=== PATIENT | female | born 1955 | race Caucasian/White ===

== ENCOUNTER 2021-07-21 16:29 | Observation (INO) ==
--- NOTE | 2021-07-21 20:39 | Emergency Department Note ---
Impression & Plan Vision loss of right eye ED Provider Note Provider: Tommie Castillo MD DATE OF SERVICE: 07/21/2021 CHIEF COMPLAINT: Loss of vision HISTORY OF PRESENT ILLNESS: Patient is a 66-year-old female does not normally see a doctor presenting here reporting that over the past week she lost vision in her right eye. States a little bit of pressure and numbness of the right religion area. No trauma reported. No ocular eye pain acutely at this point. Denies headache or dizziness. Denies difficulty speaking or walking. Denies numbness or tingling in the other extremities. Patient states she went to the eye doctor today who did an exam and recommended she come here for further evaluation. Patient states she wears glasses and distantly were contacts but no history otherwise of ophthalmologic surgeries. REVIEW OF SYSTEMS: A total of 10 review of systems was obtained and negative except as stated above in the HPI. PAST MEDICAL HISTORY: As noted above MEDICATIONS: Denies SOCIAL HISTORY: , occasional smoker PHYSICAL EXAM: GENERAL: alert and oriented in no acute distress on stretcher Head: normocephalic and atraumatic EYES: No injection, discharge or icterus. On extraocular motions the patient has inability to significantly elevate the right eye above midline. The right eye has no visual acuity to light. The pupils do not constrict with light to the right eye, but the the left eye constrict with light in the left eye and the right eye constricts with this as well consensually NECK: Trachea midline. Supple. ENT: Mucous membranes pink and moist. LUNGS: Airway patent. No retractions. Breath sounds clear with good air entry bilaterally. HEART: Regular rate and rhythm. No chest wall tenderness ABDOMEN: Soft and non-tender, without guarding or rebound. SKIN: Acyanotic, warm, dry, without rashes EXTREMITIES: Without swelling, tenderness or deformity NEUROLOGICAL: No aphasia. No facial droop or slurred speech. Normal strength and tone in the extremities. Sensation to gross touch normal except for a little numbness over the right religion region. Ambulatory. EK bpm normal sinus rhythm. No PVC or PAC. No acute ST segment elevation or depression. QTC 420. CONTINUOUS CARDIAC MONITORING: was ordered and showed a heart rate of 60-80s bpm in normal sinus rhythm 60s Patient's laboratory studies and imaging reviewed. Differential includes Infection, dehydration, metabolic abnormality, hypo/hyperglycemia, electrolyte disturbance, anemia, hypoxia, cardiac sources, intracerebral event, toxicologic, neurologic, as well as other pathologies. IMPRESSION/MEDICAL DECISION MAKING: Patient with loss of vision in the right eye and difficulty with extraocular motions of the right eye raising above horizon. Pupil reacts on the right side. Little bit of numbness and pressure behind the eye and to the right religion. No other aphasia or numbness or weakness elsewhere. No trauma reported or significant headache or dizziness. Right eye does not see even light. CRP and ESR not elevated and seems less likely be GCA. Question possible stroke, CRAO, or possible mass given the visual findings and extraocular motion abnormalities. Basic blood work completed here without significant abnormality. Sent for CT and CTAs of the head and neck. Again seen by optometry today and symptoms seem far beyond just simple retinal pathology such as retinal detachment or PVD. Imaging per radiology reports as below without significant acute pathology. Inflammatory markers not elevated. Given some aspirin here with Pepcid. Patient needs MRI and further neurological evaluation. Will discuss with the hospitalist further care here at the hospital. DIAGNOSIS: Right visual loss, extraocular motion abnormality of the right eye DISPOSITION: Hospitalist will evaluate Patient was agreeable with this plan. Preliminary Findings Only See Final Report For Complete Findings CT HEAD: Mild brain volume loss. No mass, hemorrhage or acute infarct. Sinuses, mastoids and bones are intact. Impression: No acute findings. Radiologist: Bhaskar Silva M.D. Study ready at 22:37 and initial results transmitted at 22:41 Preliminary Findings Only See Final Report For Complete Findings CTA HEAD: The cavernous carotids are intact. MCAs and ACAs are intact. Vertebrals, basilar and the lap cutter truer operator are intact. Impression: No acute findings. Radiologist: Bhaskar Silva M.D. Study ready at 22:42 and initial results transmitted at 23:01 Preliminary Findings Only See Final Report For Complete Findings CTA NECK: Minimal atherosclerosis of the aortic arch. The right and left carotids are intact. The vertebral arteries are intact. Upper lung vazquez, soft tissues intact. No acute findings in the bones. Impression: No acute findings. Radiologist: Bhaskar Silva M.D. Study ready at 22:42 and initial results transmitted at 23:02 Past Med/Surg History Social History Smoking Status: Current some day smoker Tobacco Type: Cigarettes Feels Safe at Home: Yes Results & Data (ED) Vital Signs Vital Signs - 24 hr 07/21/21 16:39 07/21/21 20:00 07/21/21 21:20 Temperature 36.7 C Temperature Source Oral Pulse Rate 98 H 85 Pulse Rate [Right Finger] 77 Pulse Rate from SpO2 Sensor 85 Respiratory Rate 20 20 18 Respiratory Effort / Characteristics Non-Labored Spontaneous Respiratory Depth Normal Respiratory Pattern Regular Blood Pressure 183/112 H Blood Pressure [Right Arm] 148/110 H Blood Pressure Mean 135 Blood Pressure Mean [Right Arm] 122 Blood Pressure Position Sitting Blood Pressure Position [Right Arm] Sitting Pulse Oximetry 96 97 97 Oxygen Delivery Method Room Air Room Air Sepsis Recent Fever Within 48 Hours No Sepsis New/Unexplained Change in Mental Status No Sepsis Action Taken by Nursing No Action Required 07/21/21 21:30 07/21/21 22:00 07/21/21 22:35 Temperature Temperature Source Pulse Rate 70 66 79 Pulse Rate [Right Finger] Pulse Rate from SpO2 Sensor 68 65 78 Respiratory Rate 25 H 18 23 Respiratory Effort / Characteristics Respiratory Depth Respiratory Pattern Blood Pressure Blood Pressure [Right Arm] Blood Pressure Mean Blood Pressure Mean [Right Arm] Blood Pressure Position Blood Pressure Position [Right Arm] Pulse Oximetry 95 96 94 Oxygen Delivery Method Sepsis Recent Fever Within 48 Hours Sepsis New/Unexplained Change in Mental Status Sepsis Action Taken by Nursing 07/21/21 22:59 07/21/21 23:42 Temperature Temperature Source Pulse Rate Pulse Rate [Right Finger] 64 80 Pulse Rate from SpO2 Sensor Respiratory Rate 20 20 Respiratory Effort / Characteristics Non-Labored Spontaneous Respiratory Depth Normal Respiratory Pattern Regular Blood Pressure Blood Pressure [Right Arm] 125/69 129/88 Blood Pressure Mean Blood Pressure Mean [Right Arm] 87 101 Blood Pressure Position Blood Pressure Position [Right Arm] Sitting Sitting Pulse Oximetry 99 97 Oxygen Delivery Method Room Air Sepsis Recent Fever Within 48 Hours Sepsis New/Unexplained Change in Mental Status Sepsis Action Taken by Nursing Laboratory Data Result diagrams: 07/21/21 21:15 07/21/21 21:15 Lab Results 07/21/21 07/21/21 07/21/21 Range/Units 21:14 21:15 21:15 WBC 10.58 (4.8-10.8) K/uL RBC 5.07 (4.2-5.4) M/uL Hgb 15.9 (12.0-16.0) g/dL POC Hgb (12.0-16.0) g/dl Hct 46.5 (37-47) % POC Hct (37-47) % MCV 91.7 (80-100) fL MCH 31.4 (25-34) pg MCHC 34.2 (32-36) g/dL RDW Std Deviation 43.3 (36.4-46.3) fL RDW Coeff of Vania 13.1 (11.5-14.5) % Plt Count 388 (130-400) K/uL MPV 10.0 (7.4-10.4) fL Immature Gran % (Auto) 0.2 % Neut % (Auto) 57.9 % Lymph % (Auto) 30.8 % [place] % (Auto) 9.0 % Eos % (Auto) 1.7 % Baso % (Auto) 0.4 % Neut # (Auto) 6.13 (1.4-6.5) K/uL Lymph # (Auto) 3.26 (1.2-3.4) K/uL [place] # (Auto) 0.95 H (0.11-0.59) K/uL Eos # (Auto) 0.18 (0-0.5) K/uL Baso # (Auto) 0.04 (0-0.2) K/uL Immature Gran # (Auto) 0.02 (0.00-0.02) K/uL ESR (0-30) mm/hr PT 9.9 (9.0-12.0) Seconds INR 1.0 (0.9-1.1) APTT 26.0 (21.0-31.0) Seconds PTT Ratio 1.0 POC Sodium (135-144) mmol/L Sodium (136-145) mmol/L POC Potassium (3.3-5.0) mmol/L Potassium (3.5-5.1) mmol/L POC Chloride (101-112) mmol/L Chloride (98-107) mmol/L Carbon Dioxide (21-32) mmol/L POC Total CO2 (24-31) mmol/L Anion Gap (3-11) POC Anion Gap (16-25) mmol/L POC BUN (7-18) mg/dl BUN (7-18) mg/dl Creatinine (0.6-1.2) mg/dl POC Creatinine (0.6-1.3) mg/dl Est Cr Clr Drug Dosing ml/min Est GFR ( Amer) ml/min Est GFR (Non-Af Amer) ml/min BUN/Creatinine Ratio (10-20) Glucose (70-99) mg/dl POC Glucose 99 (70-99) mg/dl POC Glucose (other) (70-99) mg/dl Calcium (8.5-10.1) mg/dl POC Ioniz Calcium Rai (1.12-1.32) mmol/l Magnesium (1.8-2.4) mg/dl Total Bilirubin (0.2-1) mg/dl AST (15-37) U/L ALT (12-78) U/L Alkaline Phosphatase (45-117) U/L Troponin I (0-0.045) ng/ml C-Reactive Protein (0-0.29) mg/dl Total Protein (6.4-8.2) gm/dl Albumin (3.4-5.0) gm/dl Globulin (2.5-4.0) gm/dl Albumin/Globulin Ratio (0.9-2) COVID-19 Eval Order SARS-CoV-2 (PCR) (Negative) 07/21/21 07/21/21 07/21/21 Range/Units 21:15 21:15 21:18 WBC (4.8-10.8) K/uL RBC (4.2-5.4) M/uL Hgb (12.0-16.0) g/dL POC Hgb (12.0-16.0) g/dl Hct (37-47) % POC Hct (37-47) % MCV (80-100) fL MCH (25-34) pg MCHC (32-36) g/dL RDW Std Deviation (36.4-46.3) fL RDW Coeff of Vania (11.5-14.5) % Plt Count (130-400) K/uL MPV (7.4-10.4) fL Immature Gran % (Auto) % Neut % (Auto) % Lymph % (Auto) % [place] % (Auto) % Eos % (Auto) % Baso % (Auto) % Neut # (Auto) (1.4-6.5) K/uL Lymph # (Auto) (1.2-3.4) K/uL [place] # (Auto) (0.11-0.59) K/uL Eos # (Auto) (0-0.5) K/uL Baso # (Auto) (0-0.2) K/uL Immature Gran # (Auto) (0.00-0.02) K/uL ESR 26 (0-30) mm/hr PT (9.0-12.0) Seconds INR (0.9-1.1) APTT (21.0-31.0) Seconds PTT Ratio POC Sodium (135-144) mmol/L Sodium 140 (136-145) mmol/L POC Potassium (3.3-5.0) mmol/L Potassium 3.7 (3.5-5.1) mmol/L POC Chloride (101-112) mmol/L Chloride 108 H (98-107) mmol/L Carbon Dioxide 24 (21-32) mmol/L POC Total CO2 (24-31) mmol/L Anion Gap 7.0 (3-11) POC Anion Gap (16-25) mmol/L POC BUN (7-18) mg/dl BUN 16 (7-18) mg/dl Creatinine 0.85 (0.6-1.2) mg/dl POC Creatinine (0.6-1.3) mg/dl Est Cr Clr Drug Dosing 51.5 ml/min Est GFR ( Amer) 82.8 ml/min Est GFR (Non-Af Amer) 71.4 ml/min BUN/Creatinine Ratio 18.9 (10-20) Glucose 93 (70-99) mg/dl POC Glucose (70-99) mg/dl POC Glucose (other) (70-99) mg/dl Calcium 9.9 (8.5-10.1) mg/dl POC Ioniz Calcium Rai (1.12-1.32) mmol/l Magnesium 2.4 (1.8-2.4) mg/dl Total Bilirubin 0.4 (0.2-1) mg/dl AST 14 L (15-37) U/L ALT 27 (12-78) U/L Alkaline Phosphatase 100 (45-117) U/L Troponin I < 0.015 (0-0.045) ng/ml C-Reactive Protein < 0.29 (0-0.29) mg/dl Total Protein 8.4 H (6.4-8.2) gm/dl Albumin 4.2 (3.4-5.0) gm/dl Globulin 4.2 H (2.5-4.0) gm/dl Albumin/Globulin Ratio 1.0 (0.9-2) COVID-19 Eval Order Covid19 at [facility] SARS-CoV-2 (PCR) (Negative) 07/21/21 07/21/21 Range/Units 21:18 21:26 WBC (4.8-10.8) K/uL RBC (4.2-5.4) M/uL Hgb (12.0-16.0) g/dL POC Hgb 15.6 (12.0-16.0) g/dl Hct (37-47) % POC Hct 46 (37-47) % MCV (80-100) fL MCH (25-34) pg MCHC (32-36) g/dL RDW Std Deviation (36.4-46.3) fL RDW Coeff of Vania (11.5-14.5) % Plt Count (130-400) K/uL MPV (7.4-10.4) fL Immature Gran % (Auto) % Neut % (Auto) % Lymph % (Auto) % [place] % (Auto) % Eos % (Auto) % Baso % (Auto) % Neut # (Auto) (1.4-6.5) K/uL Lymph # (Auto) (1.2-3.4) K/uL [place] # (Auto) (0.11-0.59) K/uL Eos # (Auto) (0-0.5) K/uL Baso # (Auto) (0-0.2) K/uL Immature Gran # (Auto) (0.00-0.02) K/uL ESR (0-30) mm/hr PT (9.0-12.0) Seconds INR (0.9-1.1) APTT (21.0-31.0) Seconds PTT Ratio POC Sodium 143 (135-144) mmol/L Sodium (136-145) mmol/L POC Potassium 3.7 (3.3-5.0) mmol/L Potassium (3.5-5.1) mmol/L POC Chloride 105 (101-112) mmol/L Chloride (98-107) mmol/L Carbon Dioxide (21-32) mmol/L POC Total CO2 25 (24-31) mmol/L Anion Gap (3-11) POC Anion Gap 18.0 (16-25) mmol/L POC BUN 17 (7-18) mg/dl BUN (7-18) mg/dl Creatinine (0.6-1.2) mg/dl POC Creatinine 0.8 (0.6-1.3) mg/dl Est Cr Clr Drug Dosing ml/min Est GFR ( Amer) ml/min Est GFR (Non-Af Amer) ml/min BUN/Creatinine Ratio (10-20) Glucose (70-99) mg/dl POC Glucose (70-99) mg/dl POC Glucose (other) 97 (70-99) mg/dl Calcium (8.5-10.1) mg/dl POC Ioniz Calcium Rai 1.26 (1.12-1.32) mmol/l Magnesium (1.8-2.4) mg/dl Total Bilirubin (0.2-1) mg/dl AST (15-37) U/L ALT (12-78) U/L Alkaline Phosphatase (45-117) U/L Troponin I (0-0.045) ng/ml C-Reactive Protein (0-0.29) mg/dl Total Protein (6.4-8.2) gm/dl Albumin (3.4-5.0) gm/dl Globulin (2.5-4.0) gm/dl Albumin/Globulin Ratio (0.9-2) COVID-19 Eval Order SARS-CoV-2 (PCR) NEGATIVE (Negative) Administered Medications Discontinued Medications Aspirin (Aspirin 81 Mg Chew) 324 mg PO NOW STA Stop: 07/21/21 23:22 Last Admin: 07/21/21 23:44 Dose: 324 mg Documented by: [id number] Ioversol (Optiray 320 125ml) 120 ml IV ONCE ONE Stop: 07/21/21 22:33 Last Admin: 07/21/21 22:32 Dose: 120 ml Documented by: [id number] Discharge Plan Visit Data Chief Complaint: Eye Problems Stated Complaint: SENT BY EYE NAA AREVALO VISION-WANTS TESTS DONE ED Provider: Tommie Castillo Discharge Problem: Vision loss of right eye Patient Disposition: Being Evaluated by Hospitalist Forms Stand Alone Forms: My [facility] Referrals Referrals: PCP,NO [Physician] -
[2021-07-21 21:28] LABS: Basophils # (auto) 0.04 K/uL (0-0.2); Basophils % (auto) 0.4 %; Eosinophils # (auto) 0.18 K/uL (0-0.5); Eosinophils % (auto) 1.7 %; Hematocrit (blood only) 46.5 % (37-47); Hemoglobin 15.9 g/dL (12.0-16.0); Immature Granulocytes # (auto) 0.02 K/uL (0.00-0.02); Immature Granulocytes % (auto) 0.2 %; Lymphocytes # (auto) 3.26 K/uL (1.2-3.4); Lymphocytes % (auto) 30.8 %; Mean Corpuscular Hemoglobin 31.4 pg (25-34); Mean Corpuscular Hgb Conc 34.2 g/dL (32-36); Mean Corpuscular Volume 91.7 fL (80-100); Monocytes # (auto) 0.95 K/uL (0.11-0.59); Neutrophils # (auto) 6.13 K/uL (1.4-6.5); Neutrophils % (auto) 57.9 %; Platelet Count 388 K/uL (130-400); RDW Coefficient of Variation 13.1 % (11.5-14.5); RDW Standard Deviation 43.3 fL (36.4-46.3); Red Blood Count 5.07 M/uL (4.2-5.4); White Blood Count 10.58 K/uL (4.8-10.8)
[2021-07-21 21:38] LABS: Prothrombin Time 9.9 Seconds (9.0-12.0)
[2021-07-21 22:06] LABS: Alanine Aminotransferase 27 U/L (12-78); Albumin Level 4.2 gm/dl (3.4-5.0); Aspartate Aminotransferase 14 U/L (15-37); BUN Creatinine Ratio 18.9 (10-20); Blood Urea Nitrogen 16 mg/dl (7-18); Calcium 9.9 mg/dl (8.5-10.1); Carbon Dioxide 24 mmol/L (21-32); Chloride 108 mmol/L (98-107); Creatinine Clr Calc Pharmacy 51.5 ml/min; Est GFR (African American) 82.8 ml/min; Est GFR (Non-African American) 71.4 ml/min; Glucose 93 mg/dl (70-99); Magnesium 2.4 mg/dl (1.8-2.4); Potassium 3.7 mmol/L (3.5-5.1); Sodium 140 mmol/L (136-145)
[2021-07-21 22:11] LABS: Alkaline Phosphatase 100 U/L (45-117); Bilirubin,Total 0.4 mg/dl (0.2-1); C Reactive Protein < 0.29 mg/dl (0-0.29); Globulin 4.2 gm/dl (2.5-4.0); Total Protein 8.4 gm/dl (6.4-8.2); Troponin I < 0.015 ng/ml (0-0.045)
[2021-07-21 22:18] LABS: iSTAT Creatinine 0.8 mg/dl (0.6-1.3); iSTAT Hemoglobin 15.6 g/dl (12.0-16.0); iSTAT Ionized Calcium 1.26 mmol/l (1.12-1.32); iSTAT Potassium 3.7 mmol/L (3.3-5.0)
[2021-07-21] MEDS ORDERED: OPTIRAY 320 125ml IV ONE (22:32)
[2021-07-21] MEDS ORDERED: ASPIRIN 81 MG CHEW PO STA (23:21)
[2021-07-22] MEDS ORDERED: FAMOTIDINE 20MG IV PUSH 20 MG/5 ML SYR IV STA (00:15)
--- NOTE | 2021-07-22 02:55 | History and Physical Report ---
DATE OF ADMISSION: 07/22/2021. CHIEF COMPLAINT: Right eye vision loss. HISTORY OF PRESENT ILLNESS: This is a 66-year-old female with a past medical history significant for ongoing tobacco abuse, she does not go to doctor often, comes because of right eye vision loss since a week, also has some pain in the back of the eye and to the right side of the scalp. Denies any headaches. She went to lens molder today they think there is some swelling of the optic nerve and some pain and discomfort with upward gaze and sent her to the ER for further evaluation for any stroke or any mass. The patient otherwise denies any other complaints. Denies any runny nose, earache, sore throat, no cough, no fevers. No difficulty swallowing. No chest pain, no shortness of breath, no nausea, no abdominal pain. Normal bowel and bladder movements. No swelling in the legs. Otherwise, ambulates and climbs steps without any problem. She says she smokes half pack of cigarettes in a week. No recent weight gain or weight loss. ALLERGIES: No known drug allergies. PAST MEDICAL HISTORY: As mentioned above. PAST SURGICAL HISTORY: Laparoscopic cholecystectomy, total hysterectomy. MEDICATIONS: None. FAMILY HISTORY: Significant for father has heart attack. SOCIAL HISTORY: . She says she smoke half pack every week for many years. No alcohol use. No drug use. REVIEW OF SYSTEMS: As per HPI. Rest of review of systems is negative. PHYSICAL EXAMINATION: GENERAL: The patient is of moderate build, not in acute distress. VITAL SIGNS: Temperature 36.7, pulse 80, respiratory rate 20, blood pressure 129/88, oxygen 97% on room air. HEENT: Pupils nonreactive on the right eye, reactive to left eye. Vision loss in the right eye. Extraocular muscles intact. Possible exophthalmus on the right eye. Oral mucosa moist. NECK: No JVD, no neck masses. CARDIOVASCULAR: S1 and S2 heard. Regular rate and rhythm. No murmur, no gallop. RESPIRATORY SYSTEM: Normal AP diameter. No accessory muscle use. No wheezing, no crackles. ABDOMEN: Soft, bowel sounds present, nontender, no distention. CENTRAL NERVOUS SYSTEM: Except for the right eye vision loss. Cranial nerves II through XII are grossly intact. Strength 5/5 in all extremities. Sensation is intact. No pronator drift. EXTREMITIES: No edema, no erythema. LABORATORY DATA: WBC 10.5, hemoglobin 15.9, hematocrit 46.5, platelets 388. PT 10.9, INR 1, APTT 26. ESR 26. Sodium 140, potassium 3.7, chloride 108, bicarbonate 24, BUN 16, creatinine 0.8, serum glucose 93, calcium 9.9, magnesium 2.4, total bilirubin 0.4, AST 14, ALT 27, alkaline phosphatase 100. Troponin I less than 0.015. C-reactive protein was less than 0.29. SARS-CoV-2 PCR negative. IMAGING DATA: CT of the head, preliminary report, no acute findings. CTA of the head and neck, preliminary report, no acute findings. EKG: Normal sinus rhythm at a rate of 67, no previous EKG available. ASSESSMENT AND PLAN: This is a 66-year-old female who presents with right eye vision loss. 1. Right eye vision loss ongoing for 1 week, saw lens molder found some swelling of the optic nerve and some painful right upward gaze, sent here for further workup for any stroke or mass. Initial workup of CT of the head and CTA of the head and neck were unremarkable. Received aspirin in the ER. We will do MRI scan and echo. Follow the lipid profile. Consult Neurology in a.m. Closely monitor in the tele floor. 2. Ongoing tobacco abuse: Needs counseling. 3. Deep venous thrombosis prophylaxis: Sequential compression devices. DISPOSITION: Closely monitor in tele floor. Level 1 full code. Expect to discharge home and follow with family doctor. Job ID: [id number] [facility]
[2021-07-22] MEDS ORDERED: PHARMACIST DISCHARGE MED REC CONSULT PRN (03:34)
[2021-07-22] MEDS ORDERED: NITROGLYCERIN SL 0.4 MG/TAB TAB SL PRN (03:34)
[2021-07-22] MEDS ORDERED: SODIUM CHLORIDE 0.9% 1000ML 1,000 ML IV SCH (03:34)
[2021-07-22] MEDS ORDERED: ACETAMINOPHEN 325 MG TAB PO PRN (03:34)
[2021-07-22] MEDS ORDERED: ONDANSETRON INJ 2 MG/ML 2 ML VIAL IV PRN (03:34)
[2021-07-22] MEDS ORDERED: PATIENT'S ALLERGY INFO NEEDS ENTERED STA (03:45)
[2021-07-22] MEDS ORDERED: GADOBUTROL 65ML VIAL IV ONE (05:30)
[2021-07-22 06:00] LABS: Basophils # (auto) 0.04 K/uL (0-0.2); Basophils % (auto) 0.5 %; Eosinophils # (auto) 0.17 K/uL (0-0.5); Hematocrit (blood only) 45.5 % (37-47); Hemoglobin 15.2 g/dL (12.0-16.0); Immature Granulocytes # (auto) 0.02 K/uL (0.00-0.02); Immature Granulocytes % (auto) 0.2 %; Lymphocytes # (auto) 2.27 K/uL (1.2-3.4); Lymphocytes % (auto) 26.1 %; Mean Corpuscular Hemoglobin 30.6 pg (25-34); Mean Corpuscular Hgb Conc 33.4 g/dL (32-36); Mean Corpuscular Volume 91.5 fL (80-100); Mean Platelet Volume 9.9 fL (7.4-10.4); Neutrophils # (auto) 5.51 K/uL (1.4-6.5); Neutrophils % (auto) 63.2 %; Platelet Count 418 K/uL (130-400); RDW Coefficient of Variation 13.2 % (11.5-14.5); Red Blood Count 4.97 M/uL (4.2-5.4); White Blood Count 8.71 K/uL (4.8-10.8)
[2021-07-22 06:23] LABS: BUN Creatinine Ratio 17.5 (10-20); Calcium 9.7 mg/dl (8.5-10.1); Creatinine Clr Calc Pharmacy 56.1 ml/min; Est GFR (African American) 91.8 ml/min; Est GFR (Non-African American) 79.2 ml/min
--- NOTE | 2021-07-22 07:26 | Magnetic Resonance Report ---
MRI OF THE BRAIN COMBO CLINICAL HISTORY: Vision loss in the right eye. COMPARISON STUDY: CT of the brain dated 07/21/2021. TECHNIQUE: MRI of the brain was performed utilizing various T1 and T2-weighted sequences in the axial , sagittal, and coronal planes. Contrast-enhanced sequences were acquired following the administratio n of 5 cc of Gadavist. FINDINGS: Brain parenchyma: There is minimal microangiopathic change. The brain parenchyma is otherwise normal in appearance. There is no hemorrhage or mass effect. There is no restricted diffusion to suggest acu te ischemia. No enhancing mass lesion is identified on the postcontrast images. Mario-white matter dif ferentiation is preserved. No extra-axial fluid collection is seen. The cerebellar tonsils are normal in configuration. Ventricles, sulci, and cisterns: Normal in configuration. Pituitary and sella: Unremarkable. Intracranial vasculature: Normal flow voids are maintained at the skull base. Orbits: The bony orbits are grossly intact. Orbital contents are normal in appearance. Sinuses and mastoids: Clear. Calvarium: Unremarkable. Cervical cord: Partially visualized cervical spinal cord is normal in morphology and signal intensity . IMPRESSION: No intracranial abnormality is identified. ACT 112: Negative or not required by law. Electronically signed by: Jake Liard M.D. 07/22/2021 7:25 AM
--- NOTE | 2021-07-22 07:42 | CT Scan Report ---
UNENHANCED CT OF THE BRAIN; CT ANGIOGRAM OF THE BRAIN CLINICAL HISTORY: Right-sided vision loss. Facial numbness. COMPARISON STUDY: No priors. TECHNIQUE: Unenhanced axial CT scan of the brain is performed. Subsequently, following the IV adminis tration of 120 cc of Optiray 320, CT angiogram of the brain was performed from the skull base to the vertex. Images are reviewed in the axial, sagittal, and coronal planes. 3-D MIPS images are created a nd assessed. IV contrast was administered without complication. A dose lowering technique was utiliz ed adhering to the principles of ALARA. FINDINGS: Brain parenchyma: The brain parenchyma is normal in appearance. There is no hemorrhage, mass effect, or evidence of acute territorial ischemia by CT criteria. There is no evidence of enhancing mass lesi on on the angiogram phase images. No extra-axial fluid collection is seen. Mario-white matter differen tiation is preserved. Ventricles, sulci, and cisterns: Normal in configuration. CT angiogram of the brain: The internal carotid arteries are widely patent, as are the anterior and m iddle cerebral arteries. The vertebrobasilar system and posterior cerebral arteries are widely patent . The vertebral arteries are codominant. There is no aneurysm, high-grade stenosis, or focal vessel c utoff identified throughout the intracranial circulation. Dural sinuses: Clear as visualized. Orbits: The bony orbits are intact. The orbital contents are normal as visualized. Sinuses and mastoids: The visualized paranasal sinuses are clear. The mastoid air cells are well pneu matized. Calvarium: Unremarkable. IMPRESSION: 1. There is no hemorrhage, mass effect, or evidence of acute territorial ischemia by CT criteria. 2. Unremarkable CT angiogram of the brain. ACT 112: Negative or not required by law. Electronically signed by: Jake Laird M.D. 07/22/2021 7:40 AM
[2021-07-22 07:46] LABS: Estimated Average Glucose 128 mg/dl; Hemoglobin A1C 6.1 % (4.5-5.6)
--- NOTE | 2021-07-22 07:51 | Electrocardiogram Report ---
Test Reason : Blood Pressure : / mmHG Vent. Rate : 067 BPM Atrial Rate : 067 BPM P-R Int : 130 ms QRS Dur : 070 ms QT Int : 398 ms P-R-T Axes : 054 028 052 degrees QTc Int : 420 ms Normal sinus rhythm Normal ECG No previous ECGs available Confirmed by Barry Dennison ([id number]) on 07/22/2021 7:51:25 AM Referred By: REFERRED SELF Confirmed By:Barry Dennison
--- NOTE | 2021-07-22 07:56 | CT Scan Report ---
CT angio neck with con CLINICAL HISTORY: R vision loss, face numb TECHNIQUE: CT angiography of the neck was performed following intravenous administration of iodinated contrast. Automated dose lowering techniques and/or adjustment according to patient size were utiliz ed for this examination. Comparison: None available at the time of this dictation. FINDINGS: CTA Neck: A 3 vessel aortic arch is shown. Atherosclerotic plaque is present in the aortic arch and at the origin of the great vessels. There is no atherosclerotic plaque at the origins of the vertebra l arteries. The common carotid, external carotid, cervical segments of the internal carotid arteries, and the cervical segments of the vertebral arteries are patent. There is no hemodynamically signifi cant diameter stenosis or dissection present. The left vertebral artery is dominant. Lungs and soft t issues are unremarkable. IMPRESSION: 1. No occlusion, hemodynamically significant stenosis, or dissection in the major cervical arteries. Assessment of stenosis of the internal carotid arteries is based on NASCET criteria. ACT 112: Negative or not required by law. Electronically signed by: Wellington aLws M.D. 07/22/2021 7:54 AM
[2021-07-22] MEDS: ASPIRIN 81 MG ECTAB PO SCH (08:56)
--- NOTE | 2021-07-22 11:15 | Neurology Consultation ---
Date of Consultation July 22, 2021 Assessment & Plan (1) Vision loss of right eye: 1. needs formal ophthalmology exam - consult IP 2. needs CRP and TSH labs 3. start solumedrol 1 g x 3 days 4. needs MRI orbits with and without contrast - r/o lesion 5. may need temporal arteritis biopsy will continue to follow with you Supervising Physician Co-Signing Physician Notes I have seen and discussed above patient with Dr Daisha Toussaint, neurology. Pt seen and examined. Discussed with Drs. Ramos and Maggie.REviewed optometry note. 1 week ago awakened with painless nonprogressive visual loss OD. no prior neuro sx and no other neuro accompaniments. no eye pain or headache. No f,c,s, wt loss, jaw claudication, head or neck trauma CT, CTA, MRI reviewed, noncontib. ESR, CRP nml, mild increased TSH. no temp artery tenderness, nml pulsations. OD slightly greater than OS, R APD, OD red destauration. Had difficulty seeing either ON, however on r, on mildly elevated, query refractile body in OD superotemp. no pallor or hemorrhages. Hand waving R eye, full vazquez OS, R eye proptotic. no ptosis, there is no clear EOM palsy, no other cn, motor sensory or cerebellar findings. Impression painless vis loss od, query ischemic optic neuropathy(favor), nonarteritic vs arteritic(less likely given nml esr, crp, lack of associated sx), query CRAO, inflammatory optic neuropathy. P. mri orbits with and without empiric tx with steroids until dx definitive. eval for embolic occlusion, echo, zio as outpt is CRAO pt is to see Dr Serrano as outpt tomorr. this will help determine need for TA biopsy. HODAN Toussaint MD History of Present Illness Reason for Consultation: right eye vision loss Requesting Physician: David Ramos MD Attending Physician: David Ramos MD History of Present Illness Joyce is a 66 year old female with PMH- tobacco abuse.She does not go to doctor often. She present to [facility] ED 07/21/2021 with right eye vision loss for a week, also has some pain in the back of the eye and to the right side of the scalp. Denies any headaches. She went to [facility] today they think there is some swelling of the optic nerve and some pain and discomfort with upward gaze and sent her to the ER for further evaluation for any stroke or any mass. She says she smokes half pack of cigarettes in a week. She has no other symptoms no recent illness, no falls, or injury to her eye, she did have [place] palsy on that side at one point but she does not think she had any residual from that. Allergies Allergy/AdvReac Type Severity Reaction Status Date / Time No Known Drug Allergies Allergy none Verified 07/22/21 04:57 Patient History Social History Smoking Status: Current some day smoker Tobacco Type: Cigarettes Cigarettes Per Day: occasional smoker; Hx Alcohol Use: Yes Hx Substance Use: No Preferred Language: Niuean Communication Ability: Effective Settlement Worker Required: No Beliefs That Will Affect Care: None Current Living Situation: Spouse Other Information That Helps Us Care for You: No Feels Safe at Home: Yes Safety Concerns: Feels Safe At This Time Assistive Devices: None Review of Systems Review of Systems: All systems reviewed & are unremarkable except as noted in HPI & below Physical Exam Physical Exam: Physical Exam: Constitutional: appearance nourished, healthy and normal Ears, Nose, Mouth and Throat: mucous membranes moist, no injection and skin normal, eyes normal Cardiovascular: normal S-1 and S-2 and regular rate and rhythm Respiratory: clear to auscultation (CTA) and no rales, ronchi or wheeze Musculoskeletal: no peripheral edema and good distal pulses Skin: no stigmata of neurocutaneous disease noted and normal and intact Eyes: decreased vision in right eye with color desaturation to red, blurred optic nerve margin, difficulty seeing due to cataract, right efferent pupil, right central field cut and lateral upward gaze restricted. with field cut NEUROLOGIC EXAMINATION: Mental status: Alert and interactive Oriented to full date and location Oriented to person Speech fluent with no evidence of aphasia Cranial Nerves symmetric facial features Reflexes: Deep tendon reflexes were symmetrical and graded 2/5. Sensory: intact to light cool vibration Coordination: finger to nose Gait/Stance: Posture normal. Gait normal: with steady with steps, base, turning, and tandem gait. Motor: Negative for pronator drift of out stretched arms with eyes closed. 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 5/5 bilaterally hip flex plantar flex ext bilaterally 5/5 Results & Data ([facility]) Vital Signs (Past 12 Hours) Vital Signs Temp Pulse Pulse Resp BP BP Pulse Ox 07/22/21 08:00 37 C 57 L 56 L 18 129/62 97 07/22/21 03:23 36.8 C 59 L 19 134/70 99 07/22/21 03:00 54 L 16 112/65 97 07/22/21 02:30 57 L 17 128/64 99 07/22/21 02:00 58 L 16 118/71 97 07/22/21 01:30 59 L 19 136/77 97 07/22/21 01:00 61 19 122/72 98 07/22/21 00:30 61 20 131/69 98 07/22/21 00:00 61 19 136/80 98 07/21/21 23:42 80 20 129/88 97 Pulse Ox 07/22/21 08:00 97 07/22/21 03:23 07/22/21 03:00 07/22/21 02:30 07/22/21 02:00 07/22/21 01:30 07/22/21 01:00 07/22/21 00:30 07/22/21 00:00 07/21/21 23:42 Laboratory Results Abnormal lab results 07/21/21 07/21/21 07/22/21 Range/Units 21:15 21:15 05:41 Plt Count 418 H (130-400) K/uL [place] # (Auto) 0.95 H 0.70 H (0.11-0.59) K/uL Chloride 108 H (98-107) mmol/L Hemoglobin A1c (4.5-5.6) % AST 14 L (15-37) U/L Total Protein 8.4 H (6.4-8.2) gm/dl Globulin 4.2 H (2.5-4.0) gm/dl Triglycerides (0-150) mg/dl Cholesterol (0-200) mg/dl 07/22/21 07/22/21 Range/Units 05:41 05:41 Plt Count (130-400) K/uL [place] # (Auto) (0.11-0.59) K/uL Chloride (98-107) mmol/L Hemoglobin A1c 6.1 H (4.5-5.6) % AST (15-37) U/L Total Protein (6.4-8.2) gm/dl Globulin (2.5-4.0) gm/dl Triglycerides 196 H (0-150) mg/dl Cholesterol 241 H (0-200) mg/dl Diagnostic Findings MRI brain-No intracranial abnormality is identified. CTA neck-No occlusion, hemodynamically significant stenosis, or dissection in the major cervical arteries. CTA head-There is no hemorrhage, mass effect, or evidence of acute territorial ischemia by CT criteria. Unremarkable CT angiogram of the brain. TTE- 60-65% no ASD
[2021-07-22] MEDS ORDERED: Nursing to Pharmacy Communication SCH (11:30)
--- NOTE | 2021-07-22 14:19 | Hospitalist Progress Note ---
Date of Service July 22, 2021 Assessment & Plan (1) Vision loss of right eye: Plan: 1. Right eye vision loss per Dr. Sandoval's notes: ongoing for 1 week, saw check out clerk found some swelling of the optic nerve and some painful right upward gaze, sent here for further workup for any stroke or mass. Initial workup of CT of the head and CTA of the head and neck were unremarkable. -- MRI Brain: no acute CVA -- awaiting Neurology service recommendations 2. Ongoing tobacco abuse: Needs counseling. 3. Deep venous thrombosis prophylaxis: Sequential compression devices. Disposition anticipate d/c home when medically stable Admission and Anticipated Discharge Date Admission Date: July 22, 2021 Subjective ff up for r vision loss, etc seen resting in bed, comfortable states she still cannot see from the right eye reports seeing shadows only on the right eye no other focal neuro symptoms no chest pain, dyspnea, palpitations, dizziness no other symptoms Review of Systems Review of Systems: all noted and negative except for above Physical Exam Physical Exam: General- oriented x 3, not in distress, speaks in sentences with no effort or accessory muscle use Head- atraumatic Eyes- PERRL, EOMI, anicteric ENT- oropharynx clear Neck- supple, no JVD, no adenopathy, no thyromegaly; carotids +2/2, no bruits appreciated Lungs- clear to auscultation bilaterally, no rales/wheezes Heart- normal rate, regular rhythm; no murmur, no gallop, no rub appreciated Abdomen- normal bowel sounds, nondistended, soft, nontender, no masses or hepatosplenomegaly Extremities- no pretibial edema, no calf tenderness; peripheral pulses intact Neuro- alert, oriented x 3; CN 2-12 grossly intact except for r vision: counting fingers only; motor 5/5 bilaterally;sensation 100% on all extremities; no other gross focal neurologic deficits Skin- warm & dry Results & Data Results & Data ([facility]) Vital Signs (Past 12 Hours) Vital Signs Temp Pulse Pulse Resp BP BP BP 07/22/21 13:44 36.4 C L 73 16 143/81 H 07/22/21 11:59 36.5 C 68 18 120/29 L 07/22/21 08:00 37 C 57 L 56 L 18 129/62 07/22/21 03:23 36.8 C 59 L 19 134/70 07/22/21 03:00 54 L 16 112/65 07/22/21 02:30 57 L 17 128/64 Pulse Ox Pulse Ox 07/22/21 13:44 96 07/22/21 11:59 97 07/22/21 08:00 97 97 07/22/21 03:23 99 07/22/21 03:00 97 07/22/21 02:30 99 all noted and reviewed including below
[2021-07-22] MEDS ORDERED: methylPREDNISolone 1,000 MG in DEXTROSE 5% 250 ML IV SCH (17:45)
[2021-07-22 17:49] LABS: C Reactive Protein < 0.29 mg/dl (0-0.29)
[2021-07-22 18:02] LABS: T4 Free Thyroxine 1.06 ng/dl (0.8-1.6)
[2021-07-23 05:46] LABS: Basophils # (auto) 0.01 K/uL (0-0.2); Basophils % (auto) 0.1 %; Eosinophils # (auto) 0.01 K/uL (0-0.5); Eosinophils % (auto) 0.1 %; Hematocrit (blood only) 44.6 % (37-47); Hemoglobin 15.1 g/dL (12.0-16.0); Immature Granulocytes # (auto) 0.01 K/uL (0.00-0.02); Immature Granulocytes % (auto) 0.1 %; Lymphocytes # (auto) 0.67 K/uL (1.2-3.4); Lymphocytes % (auto) 7.3 %; Mean Corpuscular Hemoglobin 30.8 pg (25-34); Mean Corpuscular Hgb Conc 33.9 g/dL (32-36); Mean Platelet Volume 9.9 fL (7.4-10.4); Monocytes # (auto) 0.02 K/uL (0.11-0.59); Monocytes % (auto) 0.2 %; Neutrophils # (auto) 8.45 K/uL (1.4-6.5); Neutrophils % (auto) 92.2 %; Platelet Count 419 K/uL (130-400); RDW Coefficient of Variation 13.1 % (11.5-14.5); RDW Standard Deviation 43.5 fL (36.4-46.3); White Blood Count 9.17 K/uL (4.8-10.8)
[2021-07-23 06:18] LABS: BUN Creatinine Ratio 18.3 (10-20); Calcium 9.6 mg/dl (8.5-10.1); Creatinine Clr Calc Pharmacy 50.9 ml/min; Est GFR (African American) 81.6 ml/min; Est GFR (Non-African American) 70.4 ml/min; Potassium 3.9 mmol/L (3.5-5.1)
[2021-07-23] MEDS: ASPIRIN 81 MG ECTAB PO SCH (08:01)
[2021-07-23] MEDS ORDERED: predniSONE 20 MG TAB PO SCH (12:00)
--- NOTE | 2021-07-23 13:25 | Discharge Summary ---
Date of Service July 23, 2021 Admission HPI Per Admitting Provider CHIEF COMPLAINT: Right eye vision loss. HISTORY OF PRESENT ILLNESS: This is a 66-year-old female with a past medical history significant for ongoing tobacco abuse, she does not go to doctor often, comes because of right eye vision loss since a week, also has some pain in the back of the eye and to the right side of the scalp. Denies any headaches. She went to director embalmer today they think there is some swelling of the optic nerve and some pain and discomfort with upward gaze and sent her to the ER for further evaluation for any stroke or any mass. The patient otherwise denies any other complaints. Denies any runny nose, earache, sore throat, no cough, no fevers. No difficulty swallowing. No chest pain, no shortness of breath, no nausea, no abdominal pain. Normal bowel and bladder movements. No swelling in the legs. Otherwise, ambulates and climbs steps without any problem. She says she smokes half pack of cigarettes in a week. No recent weight gain or weight loss. Admission Exam Per Admitting Provider GENERAL: The patient is of moderate build, not in acute distress. VITAL SIGNS: Temperature 36.7, pulse 80, respiratory rate 20, blood pressure 129/88, oxygen 97% on room air. HEENT: Pupils nonreactive on the right eye, reactive to left eye. Vision loss in the right eye. Extraocular muscles intact. Possible exophthalmus on the right eye. Oral mucosa moist. NECK: No JVD, no neck masses. CARDIOVASCULAR: S1 and S2 heard. Regular rate and rhythm. No murmur, no gallop. RESPIRATORY SYSTEM: Normal AP diameter. No accessory muscle use. No wheezing, no crackles. ABDOMEN: Soft, bowel sounds present, nontender, no distention. CENTRAL NERVOUS SYSTEM: Except for the right eye vision loss. Cranial nerves II through XII are grossly intact. Strength 5/5 in all extremities. Sensation is intact. No pronator drift. EXTREMITIES: No edema, no erythema. Principal Diagnosis Vision loss of right eye: Ongoing tobacco abuse Discharge Exam VITAL SIGNS: Temperature 36.7, pulse 80, respiratory rate 20, blood pressure 129/88, oxygen 97% on room air. HEENT: Pupils nonreactive on the right eye, reactive to left eye. Vision loss in the right eye. Extraocular muscles intact. Possible exophthalmus on the right eye. Oral mucosa moist. NECK: No JVD, no neck masses. CARDIOVASCULAR: S1 and S2 heard. Regular rate and rhythm. No murmur, no gallop. RESPIRATORY SYSTEM: Normal AP diameter. No accessory muscle use. No wheezing, no crackles. ABDOMEN: Soft, bowel sounds present, nontender, no distention. CENTRAL NERVOUS SYSTEM: Except for the right eye vision loss. Cranial nerves II through XII are grossly intact. Strength 5/5 in all extremities. Sensation is intact. No pronator drift. EXTREMITIES: No edema, no erythema. Discharge Data Allergies Allergy/AdvReac Type Severity Reaction Status Date / Time No Known Drug Allergies Allergy none Verified 07/22/21 04:57 Consultations 07/21/21 23:52 ED Decision to Admit Stat 07/22/21 08:00 Consult Neurology Routine 07/22/21 16:57 Consult Ophthalmology Routine Ordered Studies 07/21/21 20:39 CT angio head w con Urgent CT angio neck with con Urgent CT head/brain wo con Urgent 07/22/21 03:34 MR brain wo/w con Urgent MRI OF THE BRAIN COMBO CLINICAL HISTORY: Vision loss in the right eye. COMPARISON STUDY: CT of the brain dated 07/21/2021. TECHNIQUE: MRI of the brain was performed utilizing various T1 and T2-weighted sequences in the axial, sagittal, and coronal planes. Contrast-enhanced sequences were acquired following the administration of 5 cc of Gadavist. FINDINGS: Brain parenchyma: There is minimal microangiopathic change. The brain parenchyma is otherwise normal in appearance. There is no hemorrhage or mass effect. There is no restricted diffusion to suggest acute ischemia. No enhancing mass lesion is identified on the postcontrast images. Mario-white matter differentiation is preserved. No extra-axial fluid collection is seen. The cerebellar tonsils are normal in configuration. Ventricles, sulci, and cisterns: Normal in configuration. Pituitary and sella: Unremarkable. Intracranial vasculature: Normal flow voids are maintained at the skull base. Orbits: The bony orbits are grossly intact. Orbital contents are normal in appearance. Sinuses and mastoids: Clear. Calvarium: Unremarkable. Cervical cord: Partially visualized cervical spinal cord is normal in morphology and signal intensity. IMPRESSION: No intracranial abnormality is identified. ACT 112: Negative or not required by law. Electronically signed by: Jake Laird M.D. 07/22/2021 7:25 AM Dictated:07/22/21721 Transcribed: 07/22/21721 CT angio neck with con CLINICAL HISTORY: R vision loss, face numb TECHNIQUE: CT angiography of the neck was performed following intravenous administration of iodinated contrast. Automated dose lowering techniques and/or adjustment according to patient size were utilized for this examination. Comparison: None available at the time of this dictation. FINDINGS: CTA Neck: A 3 vessel aortic arch is shown. Atherosclerotic plaque is present in the aortic arch and at the origin of the great vessels. There is no atherosclerotic plaque at the origins of the vertebral arteries. The common carotid, external carotid, cervical segments of the internal carotid arteries, and the cervical segments of the vertebral arteries are patent. There is no hemodynamically significant diameter stenosis or dissection present. The left vertebral artery is dominant. Lungs and soft tissues are unremarkable. IMPRESSION: 1. No occlusion, hemodynamically significant stenosis, or dissection in the major cervical arteries. Assessment of stenosis of the internal carotid arteries is based on NASCET criteria. ACT 112: Negative or not required by law. Electronically signed by: Wellington Laws M.D. 07/22/2021 7:54 AM Dictated:07/22/21747 Transcribed: 07/22/[address] OF THE BRAIN; CT ANGIOGRAM OF THE BRAIN CLINICAL HISTORY: Right-sided vision loss. Facial numbness. COMPARISON STUDY: No priors. TECHNIQUE: Unenhanced axial CT scan of the brain is performed. Subsequently, following the IV administration of 120 cc of Optiray 320, CT angiogram of the brain was performed from the skull base to the vertex. Images are reviewed in the axial, sagittal, and coronal planes. 3-D MIPS images are created and assessed. IV contrast was administered without complication. A dose lowering technique was utilized adhering to the principles of ALARA. FINDINGS: Brain parenchyma: The brain parenchyma is normal in appearance. There is no hemorrhage, mass effect, or evidence of acute territorial ischemia by CT criteria. There is no evidence of enhancing mass lesion on the angiogram phase images. No extra-axial fluid collection is seen. Mario-white matter differentiation is preserved. Ventricles, sulci, and cisterns: Normal in configuration. CT angiogram of the brain: The internal carotid arteries are widely patent, as are the anterior and middle cerebral arteries. The vertebrobasilar system and posterior cerebral arteries are widely patent. The vertebral arteries are codominant. There is no aneurysm, high-grade stenosis, or focal vessel cutoff identified throughout the intracranial circulation. Dural sinuses: Clear as visualized. Orbits: The bony orbits are intact. The orbital contents are normal as visualized. Sinuses and mastoids: The visualized paranasal sinuses are clear. The mastoid air cells are well pneumatized. Calvarium: Unremarkable. IMPRESSION: 1. There is no hemorrhage, mass effect, or evidence of acute territorial ischemia by CT criteria. 2. Unremarkable CT angiogram of the brain. ACT 112: Negative or not required by law. Electronically signed by: Jake Laird M.D. 07/22/2021 7:40 AM Dictated:07/22/21734 Transcribed: 07/22/[address] OF THE BRAIN; CT ANGIOGRAM OF THE BRAIN CLINICAL HISTORY: Right-sided vision loss. Facial numbness. COMPARISON STUDY: No priors. TECHNIQUE: Unenhanced axial CT scan of the brain is performed. Subsequently, following the IV administration of 120 cc of Optiray 320, CT angiogram of the brain was performed from the skull base to the vertex. Images are reviewed in the axial, sagittal, and coronal planes. 3-D MIPS images are created and assessed. IV contrast was administered without complication. A dose lowering technique was utilized adhering to the principles of ALARA. FINDINGS: Brain parenchyma: The brain parenchyma is normal in appearance. There is no hemorrhage, mass effect, or evidence of acute territorial ischemia by CT criteria. There is no evidence of enhancing mass lesion on the angiogram phase images. No extra-axial fluid collection is seen. Mario-white matter differentiation is preserved. Ventricles, sulci, and cisterns: Normal in configuration. CT angiogram of the brain: The internal carotid arteries are widely patent, as are the anterior and middle cerebral arteries. The vertebrobasilar system and posterior cerebral arteries are widely patent. The vertebral arteries are codominant. There is no aneurysm, high-grade stenosis, or focal vessel cutoff identified throughout the intracranial circulation. Dural sinuses: Clear as visualized. Orbits: The bony orbits are intact. The orbital contents are normal as visualized. Sinuses and mastoids: The visualized paranasal sinuses are clear. The mastoid air cells are well pneumatized. Calvarium: Unremarkable. IMPRESSION: 1. There is no hemorrhage, mass effect, or evidence of acute territorial ischemia by CT criteria. 2. Unremarkable CT angiogram of the brain. ACT 112: Negative or not required by law. Electronically signed by: Jake Laird M.D. 07/22/2021 7:40 AM Dictated:07/22/21734 Transcribed: 07/22/21 0735 Hospital Course (1) Vision loss of right eye: 1. Right eye vision loss per Dr. Sandoval's notes: ongoing for 1 week, saw director embalmer found some swelling of the optic nerve and some painful right upward gaze, sent here for further workup for any stroke or mass. Initial workup of CT of the head and CTA of the head and neck were unremarkable. -- MRI Brain: no acute CVA -- Case discussed with neurology that recommended to continue steroid for possible giant cell arthritis - Follow up with ophthalmology in am (if no sign of Giant cell arthritis, will need to d/c steroid - Follow up with neuro to arrange for temporal biopsy 2. Ongoing tobacco abuse: Needs counseling. 3. Deep venous thrombosis prophylaxis: Sequential compression devices. Disposition anticipate d/c home when medically stable By CMS guidelines, a determination that the admission or continued stay is not medically necessary has been made by a member of the UR committee and a physician for this hospital stay, therefore a Code 44 will be completed and the Inpatient admission will be changed to outpatient. Total Time Total Time Spent Total Time Spent (In Minutes): 35 minutes Discharge Plan Discharge Items Patient Disposition: Home - Self-Care Reason For Visit: EYE PROBLEMS Discharge Diagnosis: Vision loss of right eye: Ongoing tobacco abuse Activity: Resume your previous activity Non-emergency contact: Primary Care Provider, Neurologist and Cone Operator Call non-emergency contact if: you have any medication questions Follow-up/Referrals: Daisha Gomez PA-C [Physician Wire Winding Machine Tender] - (Date & Time 09/10/2021 11:20 AM Provider Daisha Gomez PA-C Department Neurology [facility] ) Sharif Barber MD [Physician] - 07/24/21 9:45 am ([address] [place] [address], [place] [address] Please wear a mask to the office visit. You are requested to come alone, but if you need assistance, one person is permitted. ) Bhavin Zhang MD [Primary Care Provider] - (Date & Time 07/29/2021 3:00 PM Provider Bhavin Zhang MD Department Family Medicine [facility] ) Diet: Heart Healthy Addtl Attending Provider Instructions: Follow up appointments: 07/29/2021 3:00 PM Provider Bhavin Zhang MD Department Family Medicine [facility] Follow up with Ophthalmology Dr. Barber on 07/24/21 @ 9:45 AM [address] [place] [address] Please wear a mask to the office visit. You are requested to come alone, but if you need assistance, one person is permitted. Follow up with neurology 09/10/2021 11:20 AM Provider Daisha Gomez PA-C Department Neurology [facility] Continue prednisone 60mg daily, but if eyes specialist Dr. Barber does not think this is not giant cell arteritis, prednisone can be discontinued. You will need to arrange for outpatient ZIO patch to monitor your heart rhythm ( Your provider or neurology can arrange for it) Pending Studies at Discharge: No Stand-Alone Forms: Medications to Prevent Stroke, My [facility] TeamBuy, Smoking Cessation Medications and DC Order Prescriptions: New prednisone 20 mg Tablet 60 mg PO DAILY Qty: 5 RF: 0 aspirin 81 mg Tablet,Delayed Release (Dr/Ec) 81 mg PO QAM 30 Days Qty: 30 RF: 0 Discharge Orders: Discharge Order (Routine); Ordered 07/23/21 Ordered By: Caitlin Dailey/Other Patient Handouts: A1C Admission Data Admit Date/Time: 07/22/21 01:31 Attending Provider: Caitlin Johnston Admit Provider: Sridhar Sandoval Primary Care Provider: Bhavin Zhang Other Providers: Sridhar Sandoval ; Daisha Toussaint ; Sharif Barber ; David Ramos Other Interventions: Discharge Summary Assessment (RN) Last Done: 07/23/21 13:59
[2021-07-23] MEDS ORDERED: STROKE PATIENT DISCHARGE STA (13:53)
--- NOTE | 2021-07-24 15:24 | Communication Note ---
Date of Service: July 23, 2021 By CMS guidelines, a determination that the admission or continued stay is not medically necessary has been made by a member of the Utilization Review c ommittee and a physician for this hospital stay. Therefore, a Code 44 will be completed and the inpatient admission will be changed to outpatient. DO Doyle
== END 2021-07-23 15:48 | disposition home or self-care (01) ==
LOC: ED 16:29 → EDINP 07-22 01:31 → SUATTDRO 07-22 01:31 → INTOOBSV 07-22 01:31 → 2S 07-22 03:32